=== PATIENT | male | born 1950 | race Caucasian/White ===

== ENCOUNTER 2019-12-20 14:57 | Emergency (ER) | payer MEDICARE ==
[2019-12-20 15:34] LABS: BASOPHIL % 0.1 % (0.0-0.4); Basophil (Absolute #) 0.02 (0-0.4); Eosinophil % 0.8 % (0.00-5.0); Eosinophil (Absolute #) 0.11 (0-0.5); Hematocrit 26.9 % (42-50); Hemoglobin 8.8 gm/dl (12.5-18.0); Lymphocyte (Absolute #) 0.53 (1.0-4.6); Lymphocytes % 3.8 % (24.0-44.0); Mean Cell Volume 106.3 fl (78-100); Mean Corpuscular Hemoglobin 34.8 pg (26-32); Mean Corpuscular Hgb Concent. 32.7 g/dl (32-36); Mean Platelet Volume 9.7 fl (7.5-11.0); Monocyte (Absolute #) 0.72 (0.0-1.3); Monocytes % 5.2 % (0.0-12.0); Neutrophil % 90.1 % (36.0-66.0); Platelet Count 204 K/mm3 (150-450); Red Blood Count 2.53 M/mm3 (4.1-5.6); Red Cell Distribution Width 15.8 % (11.5-14.0); White Blood Count 13.8 K/mm3 (4.0-10.5)
[2019-12-20 15:46] LABS: ALBUMIN 3.8 g/dL (3.5-5.0); ANION GAP 21.3 MEQ/L (5-15); BILIRUBIN,TOTAL 0.7 mg/dL (0.2-1.3); Calcium 9.1 mg/dL (8.4-10.2); Creatinine 1 10.99 mg/dL (0.66-1.25); Potassium 5.3 mmol/L (3.5-5.1); Total Protein 7.3 g/dL (6.3-8.2)
[2019-12-20 16:05] LABS: Slide Review 1 YES
--- NOTE | 2019-12-20 16:31 | XRAY ---
Indication: Left lower extremity pain. 2-dimensional sonogram and color Doppler imaging of the major venous vessels of the left leg was performed. Comparison: None No thrombus seen in the examined deep venous vessels of the left leg including greater saphenous vein. Veins demonstrate normal compressibility. Venous waveforms are normal with and without augmentation. Impression: Left leg negative for DVT.
--- NOTE | 2019-12-20 16:33 | ERPHSYRPT ---
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 Patient receives HD MWF. He produces urine regularly. Patient reportedly missed HD on Thursday. Patient c/o weekness of extremities and dizziness that has been ongoing for 3 weeks. Patient additionally c/o bilateral foot pain but left is worse than right and associated with swelling. He has a history of PVD and reports that a LLE stent was placed approximately 3 weeks ago. No trauma or fevers. He had x rays at [facility] of both feet which showed chronic changes. He had a Chest x ray as well showed mild pulmonary congestion. Patient has no CP or SOB at this time. Magnesium at that time was 2.4. EMS called and notified us that patient would be coming. We called patient's breakdown worker Dr. Mason who is aware of patient two previous ED visits. Dr. Mason would like to be notified of our work up today. Pateint voices no other c/o. No CP or SOB. No N/V/D No fevers. No neck pain or photophobia. No associated numbness, weakness or tenderness. Timing/Duration: week(s) Severity: moderate Modifying Factors: Improves With: other (no modifying factors. ) Associated Symptoms: No nausea, No vomiting, No abdominal pain, No shortness of breath, No diaphoresis, No cough, No chest pain, No fever, No rash, No syncope Allergies/Adverse Reactions: No Known Drug Allergies Allergy (Verified 12/20/19 15:36) - Review of Systems Constitutional: No Fever, No Chills Eyes: No Symptoms Ears, Nose, & Throat: No Symptoms Respiratory: No Cough, No Dyspnea Cardiac: No Chest Pain, No Edema, No Syncope Abdominal/Gastrointestinal: No Abdominal Pain, No Nausea, No Vomiting, No Diarrhea Genitourinary Symptoms: No Dysuria Musculoskeletal: No Back Pain, No Neck Pain Skin: No Rash Neurological: No Dizziness, No Focal Weakness, No Sensory Changes Psychological: No Symptoms Endocrine: No Symptoms All Other Systems: Reviewed and Negative - Past Medical History Cardiac History: Arrhythmia, Hypertension, Peripheral Vascular Disease Endocrine Medical History: Diabetes Type II History: Dialysis - Past Surgical History Past Surgical History: Yes Musculoskeletal: Amputation Other Surgical History: vein replacement in legs - Social History Smoking Status: Former smoker Exposure to second hand smoke: No Drug Use: none Patient Lives Alone: No - Nursing Vital Signs Nursing Vital Signs: Initial Vital Signs Temperature 97.9 F 12/20/19 15:00 Pulse Rate 76 12/20/19 15:00 Blood Pressure 143/61 12/20/19 15:00 O2 Sat by Pulse Oximetry 96 12/20/19 15:00 Pain Scale Pain Intensity 0 - Physical Exam General Appearance: no apparent distress Eye Exam: PERRL/EOMI, eyes nml inspection Ears, Nose, Throat Exam: normal ENT inspection, TMs normal, pharynx normal, moist mucous membranes Neck Exam: normal inspection, non-tender, supple, full range of motion Respiratory Exam: normal breath sounds, lungs clear, No respiratory distress Cardiovascular Exam: regular rate/rhythm, normal heart sounds, normal peripheral pulses, capillary refill <2 sec (Rt. UE fistula intact. ) Gastrointestinal/Abdomen Exam: soft, normal bowel sounds, No tenderness, No mass Back Exam: normal inspection, normal range of motion, No CVA tenderness, No vertebral tenderness Extremity Exam: normal inspection, normal range of motion, pelvis stable, amputations (1st and 2nd digit amputation on right and 3rd and 4th on left. 1+ pitting edema of both LE. Difficult to appreciate pulses but extremities are warm, pink and appear well perfused. ) Neurologic Exam: alert, oriented x 3, cooperative, normal mood/affect, nml cerebellar function, nml station & gait, sensation nml, No motor deficits, No sensory deficit, No disoriented, No confusion, No motor weakness, No facial droop, No slurred speech, No aphasia, No dysarthria, No abnormal cerebellar tests, No abnormal pediatric medical assistant II-XII Skin Exam: normal color, warm, dry, No rash Lymphatic Exam: No adenopathy SpO2: 96 - Radiology Ultrasound Exam Venous Lower Extremity Ultrasound: negative (No DVT) Ordered Tests: Active Orders 24 hr Category Date Time Status Drafter Seismograph STAT Care 12/20/19 15:14 Active EKG-ER Only STAT Care 12/20/19 15:12 Active IV Insertion STAT Care 12/20/19 15:12 Active Pulse Oximetry (ED) STAT Care 12/20/19 15:12 Active Low Potassium Diet 12/20/19 Dinner Active VENOUS UNILAT/LIMITED EXTREMIT [US] Stat Exams 12/20/19 16:01 Completed CBC W DIFF Stat Lab 12/20/19 15:31 Completed CMP Stat Lab 12/20/19 15:31 Completed Lab/Rad Data: Laboratory Result Diagrams 12/20/19 15:31 12/20/19 15:31 Laboratory Results 12/20/19 12/20/19 Range/Units 15:31 15:31 WBC 13.8 H (4.0-10.5) K/mm3 RBC 2.53 L (4.1-5.6) M/mm3 Hgb 8.8 L (12.5-18.0) gm/dl Hct 26.9 L (42-50) % MCV 106.3 H (78-100) fl MCH 34.8 H (26-32) pg MCHC 32.7 (32-36) g/dl RDW 15.8 H (11.5-14.0) % Plt Count 204 (150-450) K/mm3 MPV 9.7 (7.5-11.0) fl Gran % 90.1 H (36.0-66.0) % Eos # (Auto) 0.11 (0-0.5) Absolute Lymphs (auto) 0.53 L (1.0-4.6) Absolute Monos (auto) 0.72 (0.0-1.3) Lymphocytes % 3.8 L (24.0-44.0) % Monocytes % 5.2 (0.0-12.0) % Eosinophils % 0.8 (0.00-5.0) % Basophils % 0.1 (0.0-0.4) % Absolute Granulocytes 12.40 H (1.4-6.9) Basophils # 0.02 (0-0.4) Sodium 143 (137-145) mmol/L Potassium 5.3 H (3.5-5.1) mmol/L Chloride 101 (98-107) mmol/L Carbon Dioxide 26 (22-30) mmol/L Anion Gap 21.3 H (5-15) MEQ/L BUN 64 H (9-20) mg/dL Creatinine 10.99 H (0.66-1.25) mg/dL Estimated GFR 5.0 ML/MIN Glucose 84 (74-106) mg/dL Calcium 9.1 (8.4-10.2) mg/dL Total Bilirubin 0.70 (0.2-1.3) mg/dL AST 15 L (17-59) U/L ALT 18 (0-50) U/L Alkaline Phosphatase 75 (38-126) U/L Serum Total Protein 7.3 (6.3-8.2) g/dL Albumin 3.8 (3.5-5.0) g/dL Slides for Path Review YES - Progress Progress Note: 12/20/19 17:07 Patient reassessed. He feels well. repeat physical exam unchaged. Pertinent findings include: US LLE neg for DVT. Potassium 5.3. Megaloblastic anemia at 8.8. AG 21. BUN/Cr 64/11 Due to missed HD, evidence of fluid overload based on CXR performed at [facility] which showed some pulmonary congestion and we will transfer. Case discussed with patient's breakdown worker Dr. Mason who agrees with POC. 12/20/19 18:05 Counseled pt/family regarding: lab results, diagnosis - Departure Departure Disposition: Transfer (Transfer to [facility] under the care Dr. Kay) Clinical Impression: ESRD (end stage renal disease), High anion gap metabolic acidosis, Megaloblastic anemia Condition: Stable Critical Care Time: No
[2019-12-20] MEDS ORDERED: TYLENOL 325 MG PO STA (18:22)
[2019-12-20 18:47] VITALS: BP 129/91; PULSE 74; O2SAT 94
== END 2019-12-20 18:52 | disposition short-term general hospital (02) ==
LOC: ED 14:57
DX: N18.6 End stage renal disease (principal); E87.2 Acidosis; D53.1 Other megaloblastic anemias, not elsewhere classified; M79.672 Pain in left foot; M79.671 Pain in right foot
CPT/HCPCS: 36000; 36415; 80053; 85025; 93005; 93041; 93971; 94760; 99285